=== PATIENT | female | born 1985 | race Caucasian/White ===

== ENCOUNTER 2017-05-15 12:50 | Emergency (ER) | payer OTHER ==
[~2017-05-15] VITALS: Ht 152.4 cm; Wt 102.1 kg
[~2017-05-15 12:50] MED LIST: CIPROFLOXACIN500 M1 PO; DOXYCYCLINE 10100 MG PO; NAPROSYN500 MG PO; NOHOMEMEDICATIONS; NORCO 5-325 TA1 EACH PO; ULTRAM 50MG TAB50 MG PO; ZOFRAN ODT4 MG PO
[2017-05-15] MEDS ORDERED: NORCO 5-325 TA1 EACH PO (13:00)
[2017-05-15] MEDS ORDERED: LIPITOR 20 MG T20 M1 PO (13:00)
[2017-05-15 13:39] LABS: URINE BILIRUBIN NEGATIVE (Negative); URINE BLOOD NEGATIVE (Negative); URINE COLOR YELLOW; URINE GLUCOSE-RANDOM* NEGATIVE (Negative); URINE KETONES NEGATIVE (Negative); URINE NITRITE NEGATIVE (Negative); URINE PROTEIN (DIPSTICK) NEGATIVE (Negative); URINE SPECIFIC GRAVITY <= 1.005 (1.005-1.035); URINE UROBILINOGEN 0.2 E.U./dl (0.2-1.0)
[2017-05-15 13:51] LABS: ABSOLUTE NEUTROPHILS 5.5 thou/uL (1.4-8.2); BASOPHILS 1.5 % (0.0-2.0); EOSINOPHILS 1.6 % (0.0-3.0); HEMATOCRIT 38.8 % (37.0-47.0); HEMOGLOBIN 13.2 gm/dL (12.0-15.0); LYMPHOCYTES 26.5 % (24.0-44.0); MCH 28.5 pg (26.0-34.0); MCV 83.9 fL (80.0-100.0); MONOCYTES 6.8 % (1.0-8.0); POLYS 63.6 % (36.0-66.0); RBC 4.63 mil/uL (4.20-5.00); RDW 14.8 % (10.5-14.5); WBC 9.3 thou/uL (4.0-11.0)
[2017-05-15 13:53] LABS: MANUAL DIFF NO
[2017-05-15 14:08] LABS: CALCIUM 8.8 mg/dL (8.5-10.1); CREATININE 0.5 mg/dL (0.6-1.0); POTASSIUM 5.3 mmol/L (3.5-5.1)
[2017-05-15 14:47] LABS: PLATELET COUNT 298 thou/uL (150-400)
[2017-05-15] MEDS ORDERED: HYDROCODONE-AP1 EAC6 PO (14:50)
[2017-05-15] MEDS ORDERED: NORFLEX100 MG PO (14:50)
[2017-05-15] MEDS ORDERED: NAPROSYN500 MG PO (14:50)
[2017-05-15 14:59] VITALS: BP 122/74
== END 2017-05-15 14:59 | disposition home or self-care (01) ==
LOC: ER 12:50
PROVIDERS: Physician Assistant
DX: S86.812A Strain of other muscle(s) and tendon(s) at lower leg level, left leg, initial encounter (principal); S80.02XA Contusion of left knee, initial encounter; S70.02XA Contusion of left hip, initial encounter; F17.210 Nicotine dependence, cigarettes, uncomplicated; Z88.1 Allergy status to other antibiotic agents; Z88.2 Allergy status to sulfonamides; Z88.5 Allergy status to narcotic agent; V23.9XXA Unspecified motorcycle rider injured in collision with car, pick-up truck or van in traffic accident, initial encounter; Y93.89 Activity, other specified; Y92.89 Other specified places as the place of occurrence of the external cause; Y99.8 Other external cause status